=== PATIENT | male | born 1970 | race Caucasian/White ===

== ENCOUNTER 2020-08-19 15:23 | Observation (INO) ==
[2020-08-19] MEDS ORDERED: methylPREDNISolone SOD SUC 125 MG/2 ML VIAL IV STA (15:36)
[2020-08-19] MEDS ORDERED: ALBUTEROL 2.5 MG/3 ML NEB RESP TX STA (15:36)
[2020-08-19 16:00] LABS: ABG Base Excess -1.8 MMOL/L (-2.5-2.5); ABG HCO3 22.7 MMOL/L (20-26); ABG Oxygen Saturation 91.8 % (95-100); ABG PCO2 40.7 MM HG (35-48); ABG PH 7.368 (7.35-7.45); ABG PO2 65.1 MM HG (80-95); ABG TCO2 19.9 MMOL/L (23-27); Allen Test Positive
[2020-08-19] MEDS ORDERED: cefTRIAXone 1,000 MG in SODIUM CHLORIDE 0.9% 100 ML IV STA (16:12)
[2020-08-19 16:14] LABS: Basophils % 0.3 % (0.0-0.8); Eosinophils # 0.3 10*3/uL (0.0-0.87); Eosinophils % 2.6 % (0.00-10.9); Hematocrit 45.8 VOL% (42.0-52.0); Hemoglobin 15.9 GM/DL (14.0-18.0); Immature Granulocytes % 0.6 %; Immature Granulocytes Absolute 0.07 #; Lymphocytes # 2.7 10*3/uL (1.4-4.0); Lymphocytes % 22.9 % (21.2-54.2); Mean Corpuscular HGB Conc 34.7 GM/DL (32-36); Mean Corpuscular Volume 87.4 FL (87-102); Mean Platelet Volume 9.6 FL (9.6-12.0); Monocytes % 7.3 % (1.7-12.7); Neutrophils % 66.3 % (38.7-73.9); Platelet Count 274 T/CUMM (130-400); Red Blood Count 5.24 MC/CUMM (3.8-5.5); Red Cell Distribution Width 13.2 % (9.3-17.3); White Blood Count 11.7 T/CUMM (4-12)
[2020-08-19 16:35] LABS: Alanine Aminotransferase 31 U/L (16-61); Albumin 3.6 G/DL (3.4-5.0); Alkaline Phosphatase 66 U/L (45-117); Aspartate Amino Transferase 17 U/L (0-37); Bilirubin,Total < 0.39 MG/DL (0.2-1.0); Blood Urea Nitrogen 11 MG/DL (7-18); Calcium 8.8 MG/DL (8.5-10.1); Estimated Glom Filtration Rate 145 ML/MIN; Glucose 144 MG/DL (74-106); Osmolality,Calculated 276.7 MOS/KG (273-304); Total Protein 7.5 G/DL (6.4-8.3)
[2020-08-19] MEDS ORDERED: ACETAMINOPHEN 325 MG TABLET PO PRN (18:07)
[2020-08-19] MEDS ORDERED: ONDANSETRON 4 MG/2 ML VIAL IV PRN (18:07)
[2020-08-19] MEDS: DOCUSATE SODIUM 100 MG CAPSULE PO SCH (22:23)
[2020-08-19] MEDS: SODIUM CHLORIDE 0.9% 1,000 ML IV SCH (22:23)
[2020-08-19] MEDS: methylPREDNISolone SOD SUC 40 MG/1 ML VIAL IV SCH (22:27)
[2020-08-19] MEDS ORDERED: ALBUTEROL 2.5 MG/3 ML NEB RESP TX PRN (23:00)
[2020-08-20 06:00] LABS: Basophils % 0.1 % (0.0-0.8); Eosinophils % 0.1 % (0.00-10.9); Hematocrit 41.8 VOL% (42.0-52.0); Hemoglobin 14.2 GM/DL (14.0-18.0); Immature Granulocytes % 1.1 %; Immature Granulocytes Absolute 0.18 #; Lymphocytes # 1.2 10*3/uL (1.4-4.0); Lymphocytes % 7.3 % (21.2-54.2); Mean Corpuscular Volume 87.6 FL (87-102); Mean Platelet Volume 9.8 FL (9.6-12.0); Monocytes % 1.9 % (1.7-12.7); Neutrophils % 89.5 % (38.7-73.9); Platelet Count 279 T/CUMM (130-400); Red Blood Count 4.77 MC/CUMM (3.8-5.5); White Blood Count 16.7 T/CUMM (4-12)
[2020-08-20 06:47] LABS: Calcium 8.9 MG/DL (8.5-10.1)
[2020-08-20] MEDS: methylPREDNISolone SOD SUC 40 MG/1 ML VIAL IV SCH ×2 (09:56→20:32)
[2020-08-20] MEDS: DOCUSATE SODIUM 100 MG CAPSULE PO SCH ×2 (09:56→20:31)
[2020-08-20] MEDS: PANTOPRAZOLE 40 MG TABLET PO SCH (09:56)
[2020-08-20] MEDS ORDERED: GLUCAGON 1 MG VIAL IM PRN (13:45)
[2020-08-20] MEDS ORDERED: DEXTROSE 50% 25 GM/50 ML VIAL IV PRN (13:45)
[2020-08-20] MEDS: SODIUM CHLORIDE 0.9% 1,000 ML IV SCH (14:55)
[2020-08-20] MEDS: INSULIN REGULAR 100 UNIT/ML SUBCUT SCH ×2 (15:28→20:45)
[2020-08-20] MEDS ORDERED: cefTRIAXone 1,000 MG in SYRINGE 1 EACH IV SCH (16:00)
[2020-08-20] MEDS ORDERED: SIMVASTATIN 10 MG TABLET PO SCH (21:00)
[2020-08-20] MEDS ORDERED: MONTELUKAST 10 MG TABLET PO SCH (21:00)
[2020-08-21] MEDS: SODIUM CHLORIDE 0.9% 1,000 ML IV SCH ×2 (03:30→12:30)
[2020-08-21 06:03] LABS: Calcium 8.9 MG/DL (8.5-10.1); Osmolality,Calculated 279.4 MOS/KG (273-304)
[2020-08-21] MEDS: INSULIN REGULAR 100 UNIT/ML SUBCUT SCH ×2 (07:23→11:54)
[2020-08-21] MEDS ORDERED: hydroCHLOROthiazide 25 MG TABLET PO SCH (09:00)
[2020-08-21] MEDS ORDERED: BISOPROLOL 5 MG TABLET PO SCH (09:00)
[2020-08-21] MEDS: DOCUSATE SODIUM 100 MG CAPSULE PO SCH (09:23)
[2020-08-21] MEDS: PANTOPRAZOLE 40 MG TABLET PO SCH (09:23)
[2020-08-21] MEDS: methylPREDNISolone SOD SUC 40 MG/1 ML VIAL IV SCH (09:24)
[2020-08-21 12:31] VITALS: BP 135/82
== END 2020-08-21 14:10 | disposition home or self-care (01) ==
LOC: N.ED 15:23 → N.EDINP 15:23 → N.3E 19:50
PROVIDERS: ADMIT Family Medicine; ATTEND Family Medicine